=== PATIENT | female | born 1970 | race Caucasian/White ===

== ENCOUNTER 2019-01-06 10:32 | Observation (INO) ==
[2019-01-06] MEDS ORDERED: Metoclopramide 10 MG/2 ML VIAL IVP ONE (10:58)
[2019-01-06] MEDS ORDERED: 0.9 % Sodium Chloride 500 ML IVC STA (11:00)
[2019-01-06 11:48] LABS: Basophils % 0.2 %; Eosinophils # 0.2 K/mcL (0.0-0.6); Eosinophils % 1.6 %; Hematocrit 45.7 % (35.3-44.9); Hemoglobin 15.2 g/dL (11.5-15.4); Immature Granulocytes % 0.3 % (0-4); Lymphocytes # 3.6 K/mcL (0.6-4.6); Lymphocytes % 34.3 %; Mean Corpuscular HGB Conc 33.3 g/dL (31.6-35.5); Mean Corpuscular Hemoglobin 29.6 pg (28.0-33.3); Mean Corpuscular Volume 89.1 fL (83.0-100.0); Mean Platelet Volume 8.9 fL (9.4-12.4); Monocytes # 0.7 K/mcL (0.0-1.3); Monocytes % 6.3 %; Platelet Count 342 K/mcL (140-400); Red Blood Count 5.13 M/mcL (3.82-4.97); Red Cell Distribution Width 12.7 % (11.5-14.5); Segmented Neutrophils % 57.3 %
[2019-01-06 11:59] LABS: Prothrombin Time 10.9 Seconds (9.4-12.1)
[2019-01-06 12:02] LABS: Activated Partial Thrombo Time 32.7 Seconds (26.0-36.0)
[2019-01-06 12:03] LABS: BUN/Creatinine Ratio 11 (6-26); Blood Urea Nitrogen 8 mg/dL (6-20); Carbon Dioxide 24 mEq/L (23-29); Chloride 107 mEq/L (98-107); Glucose 91 mg/dL (70-105); Osmolality,Calculated 290 (280-300); Sodium 141 mEq/L (136-145); eGFR For Non-African Americans > 60 (> 60)
--- NOTE | 2019-01-06 12:12 | Emergency Department Note ---
Disposition Clinical Impression: TIA (transient ischemic attack), Blurred vision Disposition: Admitted As Inpatient Condition: Good Time of Disposition: 12:52 General Adult HPI - General Chief complaint: ED General Medical Stated complaint: "Wavy Vision" N/T Bilateral Finger Tips Time Seen by Provider: 01/06/19 10:38 Source: patient Limitations: no limitations Nursing Notes Reviewed: Yes Vital Signs Reviewed: Yes - History of Present Illness HPI Narrative: Patient is a 48-year-old female with a past medical history of hypertension and migraine disorder as well as anxiety presents to the emergency department for evaluation of blurred vision and numbness and tingling of the fingers and toes that started approximately 9:30 AM this morning. Patient states that she was leaning with her head down underdosing a prior first on when she opened her eyes she experienced blurred vision worse in the right but bilateral mostly in the periphery and then 20 minutes afterward she began having numbness with tingling in the bilateral hands and feet. This prompted her to come to the emergency department for evaluation. She states that this does not feel similar to migraines that she has had in the past and she originally did not have a headache however she was developing a LEW while I was talking to her she d escribed as a pressure-like 3/10 in the frontal region. No other focal neurological deficits. She does admit to multiple stressors in her life states that she is currently moving and that she also had a close family member/friend that and she became tearful discussing this with me. Pain Scale: 0 - Related Data Home Medications Medication Instructions Recorded Confirmed Albuterol Sulfate [Albuterol 2 puff IH Q4HR PRN 01/06/19 01/06/19 Inhaler] Topiramate [Topamax] 50 mg PO PRN PRN 01/06/19 01/06/19 Allergies Allergy/AdvReac Type Severity Reaction Status Date / Time meloxicam Allergy Swelling Verified 01/06/19 14:17 of Lip/Tongue/Throat All systems ED: reviewed and negative except as stated. Review of Systems: As Per HPI Constitutional: Denies: fever, chills Cardiovascular: Denies: chest pain, palpitations, dyspnea on exertion Respiratory: Denies: cough, dyspnea, wheezes Gastrointestinal: Denies: abdominal pain, vomiting Musculoskeletal: Denies: back pain, neck pain Neurological: Reports: headache, paresthesias. Denies: numbness, confusion, vertigo Psychiatric: Reports: anxiety Past Medical History - Past Medical History Attestation: Yes The following information was validated with the patient. Medical history: Reports: hypertension Psychiatric history: Reports: no psych history - Social History Smoking Status: Never smoker Smokeless Tobacco Status: No Alcohol use: Reports: none Drug use: Reports: none Physical Exam CONSTITUTIONAL: Well-appearing; well-nourished; A&O X 3, in no apparent distress HEAD: Normocephalic; atraumatic EYES: PERRL, no scleral icterus NOSE: The nose is normal in appearance without rhinorrhea NECK: No JVD or distended neck veins RESP: Normal chest excursion with respiration; breath sounds clear and equal bilaterally; no wheezes, rhonchi, or rales CARD: Regular rhythm, without murmurs, rub or gallop ABD: Non-distended; non-tender, soft, without rigidity, rebound or guarding,no pulsatile mass CHEST: No pain with palpation SKIN: Normal for age and race; warm and dry without diaphoresis ; no apparent lesions EXTREMITIES: Pulses are 2 plus and equal times 4 extremities, no peripheral edema or calf muscle pain NEUROLOGICAL: Patient is alert and oriented times three. Cranial nerves III- XII are intact. Sensory and motor functions are intact. Strength is 5/5 for flexion and extension in all 4 extremities. Patellar DTRS are equal and intact. Finger to nose testing is equal and normal bilaterally. - General Limitations: no limitations General appearance: alert, in no apparent distress Course Course Narrative: The patient was originally undergoing a workup for migraine as well as evaluation of basic labs including cardiac workup at the time my attending evaluating the patient at 1137 she was experiencing some difficulty with speech which the nurse notified us that this was a new thing that just occurred when she is trying to give her information to registration. Stroke alert was called at that time and the patient was taken immediately to CAT scan which CAT scan was negative. I evaluated the patient upon return from CAT scan she had a NIH stroke scale score of 0 at that time. She is seen by [facility] telemetry Dr. Sethi in which she did not her not a candidate for TPA at this time and recommended further evaluation for risk factors for TIA. I discussed this with the patient discussed plan to admit her to this hospital for further evaluation. Her symptoms since onset have been improving patient states that she no longer feels that she has problems with her speech and states that her blurred vision has been improving since she got here and only has some residual blurred vision at this time. I discussed the patient's case with the hospitalist on-call and a ccepted. Vital Signs Temperature 97.4 F L 01/06/19 10:34 Pulse Rate 72 01/06/19 10:34 Respiratory Rate 16 01/06/19 10:34 Blood Pressure 169/120 01/06/19 10:34 O2 Sat by Pulse Oximetry 99 01/06/19 10:34 Temperature 97.4 F L 01/06/19 10:34 Pulse Rate 76 01/06/19 12:00 Respiratory Rate 16 01/06/19 12:00 Blood Pressure 150/96 01/06/19 12:00 O2 Sat by Pulse Oximetry 96 01/06/19 12:00 Oxygen Delivery Oxygen Delivery Room Air Medical Decision Making - Medical Records Medical records reviewed: Yes I reviewed the patient's medical records. - Lab Data Lab results reviewed: Yes I reviewed the patient's lab results. Result diagrams: 01/06/19 11:34 01/06/19 11:34 Lab Results 01/06/19 01/06/19 01/06/19 Range/Units 11:34 11:34 11:34 WBC 10.4 (4.3-11.1) K/mcL RBC 5.13 H (3.82-4.97) M/mcL Hgb 15.2 (11.5-15.4) g/dL Hct 45.7 H (35.3-44.9) % MCV 89.1 (83.0-100.0) fL MCH 29.6 (28.0-33.3) pg MCHC 33.3 (31.6-35.5) g/dL RDW 12.7 (11.5-14.5) % Plt Count 342 (140-400) K/mcL MPV 8.9 L (9.4-12.4) fL Immature Gran % 0.3 (0-4) % Seg Neutrophils % 57.3 % Lymphocytes % 34.3 % Monocytes % 6.3 % Eosinophils % 1.6 % Basophils % 0.2 % Neutrophils # 6.0 (1.6-8.9) K/mcL Lymphocytes # 3.6 (0.6-4.6) K/mcL Monocytes # 0.7 (0.0-1.3) K/mcL Eosinophils # 0.2 (0.0-0.6) K/mcL Basophils # 0.0 (0.0-0.2) K/mcL PT (9.4-12.1) Seconds INR APTT (26.0-36.0) Seconds Sodium 141 (136-145) mEq/L Potassium 4.0 (3.5-5.1) mEq/L Chloride 107 (98-107) mEq/L Carbon Dioxide 24 (23-29) mEq/L BUN 8 (6-20) mg/dL Creatinine 0.74 (0.60-1.20) mg/dL Est GFR ( Amer) > 60 (> 60) Est GFR (Non-Af Amer) > 60 (> 60) BUN/Creatinine Ratio 11 (6-26) Glucose 91 (70-105) mg/dL Calculated Osmolality 290 (280-300) Calcium 9.0 (8.6-10.3) mg/dL Troponin I < 0.03 (< 0.04) ng/mL 01/06/19 Range/Units 11:40 WBC (4.3-11.1) K/mcL RBC (3.82-4.97) M/mcL Hgb (11.5-15.4) g/dL Hct (35.3-44.9) % MCV (83.0-100.0) fL MCH (28.0-33.3) pg MCHC (31.6-35.5) g/dL RDW (11.5-14.5) % Plt Count (140-400) K/mcL MPV (9.4-12.4) fL Immature Gran % (0-4) % Seg Neutrophils % % Lymphocytes % % Monocytes % % Eosinophils % % Basophils % % Neutrophils # (1.6-8.9) K/mcL Lymphocytes # (0.6-4.6) K/mcL Monocytes # (0.0-1.3) K/mcL Eosinophils # (0.0-0.6) K/mcL Basophils # (0.0-0.2) K/mcL PT 10.9 (9.4-12.1) Seconds INR 1.0 APTT 32.7 (26.0-36.0) Seconds Sodium (136-145) mEq/L Potassium (3.5-5.1) mEq/L Chloride (98-107) mEq/L Carbon Dioxide (23-29) mEq/L BUN (6-20) mg/dL Creatinine (0.60-1.20) mg/dL Est GFR ( Amer) (> 60) Est GFR (Non-Af Amer) (> 60) BUN/Creatinine Ratio (6-26) Glucose (70-105) mg/dL Calculated Osmolality (280-300) Calcium (8.6-10.3) mg/dL Troponin I (< 0.04) ng/mL - Radiology Data Radiology results reviewed: Yes I reviewed the patient's radiology results. Head CT 01/06/19 11:45 IMPRESSION: No acute intracranial abnormality. MRI with diffusion-weighted imaging is more sensitive for the evaluation of acute/hyperacute stroke. D/ / Baljeet Rogers MD / Baljeet Rogers MD Interpreting Provider: Baljeet Rogers MD - EKG Data EKG #1 EKG attestation: Yes I reviewed and interpreted this EKG. EKG results narrative: EKG done at 10:56 shows sinus rhythm at a rate of 60 bpm. Normal axis. Intervals within normal limits. No signs of ST elevation, ST depression or Q waves present. Attestation Statement - Attestation Attestation: I, Cj Ricks, examined this patient and my medical decision-making was reviewed with the [employer] [employer] [facility]/PA/Advanced Practice Nurse/Resident Physician. I agree with the documented findings, disposition and treatment plan as described except to the extent set forth below. 48-year-old female presents emergency Department with concerns of disturbed peripheral vision and tingling in the bilateral upper extremities. Patient states symptoms started acutely at 9:30. They had remained constant since that time. Her symptoms did not lateralize and a stroke alert was not initially called. While she is in the emergency department she started to develop difficulty with her speech describing a dysarthria. A stroke alert was called at this time, CT of the head did not show evidence of acute bleed. NIH was 1. Patient will be admitted to the hospitalist for further care and evaluation.
--- NOTE | 2019-01-06 13:36 | Internal Med History&Physical ---
<Fidel Raphael - Last Filed: 01/06/19 16:30> Date of Encounter: 01/06/19 Time of Encounter: 13:34 Internal Medicine - H&P: HPI Chief complaint: Blurry vision Admitted From: Emergency Dept Plans for Post Hospital Care: Home History of present illness: Ms. Cantu is a 48 year old female with a PMH of HTN, DDD, pineal cyst, and migraines controlled on Topamax who presented to the ED c/o "wavy vision" since 9:30 AM this morning while sitting in front of her computer at work. Patient also reported associated transient confusion, lip numbness, and headache in the ED which resolved after Reglan and Benadryl administration. She also reported bilateral hand numbness/tingling which has now resolved and a remote history of C3-4 spinal fusion. Family is at bedside. Past Med Surg Social Fam HX - Past Medical History Medical history: hypertension Psychiatric history: no psych history - Past Surgical History Additional surgical history: spinal surgery - Social History Smoking Status: Never smoker Smokeless Tobacco Status: No Alcohol use: none Drug use: none - Family History Father Living Status: Still Living (Healthy) Mother History Unknown: Yes Internal Medicine - H&P: Meds Albuterol Sulfate [Albuterol Inhaler] 2 puff IH Q4HR PRN 01/06/19 [History] Topiramate [Topamax] 50 mg PO PRN PRN 01/06/19 [History] Allergy/AdvReac Type Severity Reaction Status Date / Time meloxicam Allergy Swelling Verified 01/06/19 14:17 of Lip/Tongue/Throat All Systems PM: A 10-system review of systems was performed and is negative for pertinent findings except as documented above in the HPI. - Constitutional Constitutional: no anorexia, no chills, no fatigue, no fever(s), no weakness - EENT Eyes: blurry vision, change in vision, diplopia, no loss of vision, no seeing flashes, no spots in vision, no tunnel vision Nose, mouth and throat: no sinus pain, no sore throat - Cardiovascular Cardiovascular ROS IM: no chest pain, no edema, no palpitations - Respiratory Respiratory: no cough, no dyspnea - Gastrointestinal Gastrointestinal: no abdominal pain, no constipation, no diarrhea, no heartburn, no nausea, no vomiting - Genitourinary Genitourinary: no dysuria, no urinary frequency, no urinary urgency - Musculoskeletal Musculoskeletal ROS IM: back pain, neck pain, numbness, tingling - Integumentary Integumentary IM: no new lesions, no rash - Neurological Neurological ROS: confusion, headache(s), numbness, paresthesias, tingling, other visual disturbances, no abnormal gait, no abnormal speech, no burning sensations, no convulsions, no dizziness, no focal weakness, no frequent falls, no tremor(s), no weakness - Psychiatric Psychiatric: no anxiety, no depression - Endocrine Endocrine IM: no fatigue, no polydipsia, no polyphagia, no polyuria - Constitutional Vitals: Temp Pulse Resp BP Pulse Ox 97.4 F L 76 16 150/96 96 01/06/19 10:34 01/06/19 12:00 01/06/19 12:00 01/06/19 12:00 01/06/19 12:00 General appearance: Present: cooperative, A&O X 3, pleasant, no acute distress, obese, answers questions appropriately Exam: awake - Head Head exam: Present: atraumatic, normocephalic - Eye Eye exam: Present: EOMI, PERRL, conjuntiva pink, sclera anicteric Pupils: Present: PERRL - ENT ENT exam: Present: mucous membranes moist, normal oropharynx - Neck Neck exam general surgery: Present: normal inspection, supple, trachea midline. Absent: lymphadenopathy, nuchal rigidity - Respiratory Respiratory exam: Present: CTAB. Absent: accessory muscle use, rales, respirato ry distress, rhonchi, wheezes - Cardiovascular Cardiovascular exam: Present: RRR, +S1, +S2. Absent: diastolic murmur, gallop, rubs, systolic murmur - GI/Abdominal GI/Abdominal exam: Present: normal bowel sounds, soft, no peritoneal signs. Absent: distended, guarding, tenderness - Extremities Exam Extremities exam: Present: warm, radial pulses palpable and symmetrical. Absent: calf tenderness, cyanotic, pedal edema - Back Exam Back exam: Present: normal inspection. Absent: paraspinal tenderness, tenderness - Neurological Exam Neurological exam: Present: alert, CN II-XII intact, oriented X3, no focal deficits, strengths equal and symetr throughout. Absent: altered, motor sensory deficit, pronater drift, facial droop, speech deficit - Psychiatric Psychiatric exam: Present: normal affect, normal mood - Skin Skin exam: Present: dry, intact, normal color, warm Internal Med - H&P Results - Labs CBC & Chem 7: 01/06/19 11:34 01/06/19 11:34 Labs: Short CBC 01/06/19 Range/Units 11:34 WBC 10.4 (4.3-11.1) K/mcL Hgb 15.2 (11.5-15.4) g/dL Hct 45.7 H (35.3-44.9) % Plt Count 342 (140-400) K/mcL Neutrophils # 6.0 (1.6-8.9) K/mcL BMP 01/06/19 11:34 Sodium 141 Potassium 4.0 Chloride 107 Carbon Dioxide 24 BUN 8 Creatinine 0.74 Glucose 91 Calcium 9.0 Cardiac Enzymes 01/06/19 Range/Units 11:34 Troponin I < 0.03 (< 0.04) ng/mL - Pulse Oximetry Interpretation Digit-Finger O2 Sat by Pulse Oximetry: 97 (on ambient air) - EKG Data EKG shows normal: sinus rhythm (sinus rhythm at a rate of 60 bpm. Normal axis. Intervals within normal limits. No signs of ST elevation, ST depression or Q waves present) - Impressions ITS Impressions Head CT 01/06/19 11:45 IMPRESSION: No acute intracranial abnormality. MRI with diffusion-weighted imaging is more sensitive for the evaluation of acute/hyperacute stroke. D/ / Baljeet Rogers MD / Baljeet Rogers MD Interpreting Provider: Baljeet Rogers MD - Assessment and Plan (1) TIA (transient ischemic attack) Current Visit: Yes Status: Suspected Assessment and plan: 48-year-old female presents with transient blurry vision, confusion, roberto-oral and bilateral hand numbness/tingling, and headache. Symptoms resolved without any residual deficits. Differential includes TIA versus complex migraine versus hypertensive crisis. CT brain revealed no acute intracranial abnormality. MRI brain pending (Ativan x1 ordered pre-procedure secondary to history of severe anxiety with MRIs in the past) Echo pending Carotid Doppler pending Continue aspirin. Symptoms are completely resolved, no indication for PT/OT/ST elevation at this time. 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 Asymptomatic. Continue monitoring. (5) Obesity (BMI 30-39.9) Current Visit: Yes Status: Chronic Assessment and plan: Lifestyle modification. (6) DVT prophylaxis Current Visit: Yes Status: Acute Assessment and plan: Heparin SubQ TID (7) Hypertensive emergency Current Visit: Yes Status: Resolved Assessment and plan: Patient presented with blood pressure 160/120 --> 196/105 and acute altered mental status/ transient neuro deficits. Blood pressure now within normal range Continue hydralazine prn - Time Spent With Patient Total time spent is greater than 50% in coordination of care (as documented) at patient's floor/unit and/or counseling patient: <Bobby Mar - Last Filed: 01/06/19 19:00> Date of Encounter: 01/06/19 Internal Medicine - H&P: HPI History of present illness: Ms. Cantu is a 48 year old female All Systems PM: A 10-system review of systems was performed and is negative for pertinent findings except as documented above in the HPI. - Constitutional Vitals: Temp Pulse Resp BP Pulse Ox 97.8 F 70 17 150/95 97 01/06/19 16:57 01/06/19 16:57 01/06/19 16:57 01/06/19 16:57 01/06/19 16:57 Internal Med - H&P Results - Labs CBC & Chem 7: 01/06/19 11:34 01/06/19 11:34 Labs: Short CBC 01/06/19 Range/Units 11:34 WBC 10.4 (4.3-11.1) K/mcL Hgb 15.2 (11.5-15.4) g/dL Hct 45.7 H (35.3-44.9) % Plt Count 342 (140-400) K/mcL Neutrophils # 6.0 (1.6-8.9) K/mcL BMP 01/06/19 11:34 Sodium 141 Potassium 4.0 Chloride 107 Carbon Dioxide 24 BUN 8 Creatinine 0.74 Glucose 91 Calcium 9.0 Cardiac Enzymes 01/06/19 Range/Units 11:34 Troponin I < 0.03 (< 0.04) ng/mL - Impressions ITS Impressions Head CT 01/06/19 11:45 IMPRESSION: No acute intracranial abnormality. MRI with diffusion-weighted imaging is more sensitive for the evaluation of acute/hyperacute stroke. D/ / Baljeet Rogers MD / Baljeet Rogers MD Interpreting Provider: Baljeet Rogers MD - Assessment and Plan (1) TIA (transient ischemic attack) Current Visit: Yes Status: Suspected (2) Migraine without aura and without status migrainosus, not intractable Current Visit: Yes Status: Chronic (3) DDD (degenerative disc disease) Current Visit: Yes Status: Chronic Qualifiers: Spinal region: mid-cervical Mid-cervical spinal level: unspecified Qualified Code(s): M50.320 - Other cervical disc degeneration, mid-cervical region, unspecified level (4) Obesity (BMI 30-39.9) Current Visit: Yes Status: Chronic (5) Pineal gland cyst Current Visit: Yes Status: Chronic (6) DVT prophylaxis Current Visit: Yes Status: Acute (7) Hypertensive emergency Current Visit: Yes Status: Resolved - Time Spent With Patient Total time spent is greater than 50% in coordination of care (as documented) at patient's floor/unit and/or counseling patient: - Attending Attestation I have seen and independently assessed this patient and I agree with plan as documented
[2019-01-06] MEDS ORDERED: Ketorolac 15 MG/ML VIAL IVP PRN (14:25)
[2019-01-06] MEDS ORDERED: *HR* LORazepam 2 MG/ML VIAL IVP ONE (14:25)
[2019-01-06] MEDS ORDERED: Naloxone 0.4 MG/ML INJ IVP PRN (14:25)
[2019-01-06] MEDS ORDERED: Ondansetron 4 MG/2 ML VIAL IVP PRN (14:25)
[2019-01-06] MEDS ORDERED: Aspirin Enteric Coated 325 MG Tablet PO ONE (14:25)
[2019-01-06] MEDS ORDERED: Topiramate 25 MG TABLET PO PRN (14:44)
[2019-01-06 15:20] LABS: Chol/HDL Ratio 4.1 (0-4.9); Cholesterol 160 mg/dL (< 200); HDL Cholesterol 39 mg/dL (40-59); LDL Cholesterol,Calculated 90 mg/dL (0-99); Magnesium 1.9 mg/dL (1.6-2.6); Triglycerides 155 mg/dL (< 150)
[2019-01-06 15:47] LABS: Estimated Average Glucose 105 mg/dl; Hemoglobin A1C 5.3 %
[2019-01-06] MEDS: *HR* Heparin 5,000 UNIT/ML VIAL SQ SCH (23:16)
[2019-01-07 03:18] LABS: Hematocrit 40.8 % (35.3-44.9); Hemoglobin 13.7 g/dL (11.5-15.4); Mean Corpuscular HGB Conc 33.6 g/dL (31.6-35.5); Mean Corpuscular Hemoglobin 29.8 pg (28.0-33.3); Mean Corpuscular Volume 88.9 fL (83.0-100.0); Mean Platelet Volume 9.1 fL (9.4-12.4); Platelet Count 291 K/mcL (140-400); Red Blood Count 4.59 M/mcL (3.82-4.97); Red Cell Distribution Width 12.7 % (11.5-14.5)
[2019-01-07 03:37] LABS: BUN/Creatinine Ratio 12 (6-26); Blood Urea Nitrogen 8 mg/dL (6-20); Calcium 8.2 mg/dL (8.6-10.3); Carbon Dioxide 23 mEq/L (23-29); Chloride 107 mEq/L (98-107); Glucose 94 mg/dL (70-105); Osmolality,Calculated 286 (280-300); Potassium 3.8 mEq/L (3.5-5.1); Sodium 139 mEq/L (136-145); eGFR For Non-African Americans > 60 (> 60)
--- NOTE | 2019-01-07 04:01 | Electrocardiograph Report ---
[facility] [employer] [facility] Test Date: 2019-01-06 Pat Name: Brittany Cantu Department: [id number] Room: 3B22 Gender: F Compliance Advisor: : 1970 Requested By: Oscar De Los Santos Order Number: [id number] Reading MD: Saad Singleton Measurements Intervals [place] Rate: 60 P: 40 UT: 173 QRS: 21 QRSD: 83 T: 62 QT: 435 QTc: 435 Interpretive Statements Sinus rhythm Electronically Signed On 01-07-2019 3:59:18 EDT by Saad Singleton
[2019-01-07] MEDS: *HR* Heparin 5,000 UNIT/ML VIAL SQ SCH ×3 (06:04→21:27)
[2019-01-07] MEDS: Aspirin Enteric Coated 81 MG Tablet PO SCH (07:55)
[2019-01-07] MEDS ORDERED: DiphenhydraMINE CREAM 28.4 GM TUBE TP PRN (12:40)
--- NOTE | 2019-01-07 14:45 | Internal Med Progress Note ---
Hospitalist Progress Note - Encounter Date of Encounter: 01/07/19 Time of Encounter: 14:32 - Subjective Interval History: Patient was seen and evaluated at bedside currently denies any headaches blurred visions, nausea she is neurologically intact. Discussed MRI CT and echo results with the patient discuss treatment plan which includes adding antihypertensive closely monitoring blood pressure. Patient verbalizes understanding - Exam Vitals: Temp Pulse Resp BP Pulse Ox 97.5 F L 85 16 141/94 96 01/07/19 12:17 01/07/19 12:17 01/07/19 12:17 01/07/19 12:17 01/07/19 12:17 Exam: Skin: Free of rash and discoloration. Eyes: Sclera is white. There is no discharge from eyes. ENMT: Oral/pharyngeal mucosa is normal in appearance. There is no discharge from nose or ears. Respiratory: Normal breath sounds with no crackles and wheezes bilaterally. CV: Heart is regular with no gallop or murmur. GI: Abdomen is flat and soft with no palpable mass or visceromegaly. : There is no tenderness in patient's flanks bilaterally. Neuro exam: He has good strength in upper and lower extremities. He has normal eye movements. Psychiatric: He has normal affect. His thought process is appropriate to the situation. - Assessment and Plan (1) Hypertensive emergency Current Visit: Yes Status: Resolved Assessment and Plan: Patient presented with blood pressure 160/120 --> 196/105 and acute altered mental status/ transient neuro deficits. Blood pressure now higher end normal range- Continue hydralazine prn We will add lisinopril and continue to monitor (2) TIA (transient ischemic attack) Current Visit: Yes Status: Suspected Assessment and Plan: 48-year-old female presents with transient blurry vision, confusion, roberto-oral and bilateral hand numbness/tingling, and headache. Symptoms resolved without any residual deficits. Differential includes TIA versus complex migraine versus hypertensive crisis.- Suspect this is more hypertensive emergency- CT brain revealed no acute intracranial abnormality. MRI brain IMPRESSION: No evidence of acute ischemia Benign 9 mm pineal cyst Echo Impressions: LVEF 65%. Mild left ventricular diastolic dysfunction. Right ventricular size is not well visualized. Systolic function grossly normal. Mild tricuspid regurgitation. No pulmonary hypertension based on TR signal obtained. Suboptimal imaging to detect PFO with saline contrast injection. Carotid Doppler Bilateral carotid duplex appears to be within normal limits. Continue aspirin. Symptoms are completely resolved, no indication for PT/OT/ST elevation at this time. (3) Migraine without aura and without status migrainosus, not intractable Current Visit: Yes Status: Chronic Assessment and Plan: Continue Topamax prn (4) DDD (degenerative disc disease) Current Visit: Yes Status: Chronic Assessment and Plan: Patient with history of C3-4 spinal fusion Continue monitoring (5) Obesity (BMI 30-39.9) Current Visit: Yes Status: Chronic Assessment and Plan: Lifestyle modification. 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 Asymptomatic. Continue monitoring. (7) DVT prophylaxis Current Visit: Yes Status: Acute Assessment and Plan: Heparin SubQ TID - Time Spent with Patient Total time spent is greater than 50% in coordination of care (as documented) at patient's floor/unit and/or counseling patient: Internal Medicine: Result - Labs CBC & Chem 7: 01/07/19 02:56 01/07/19 02:56 Labs: Short CBC 01/07/19 Range/Units 02:56 WBC 9.9 (4.3-11.1) K/mcL Hgb 13.7 D (11.5-15.4) g/dL Hct 40.8 (35.3-44.9) % Plt Count 291 (140-400) K/mcL BMP 01/06/19 01/07/19 11:34 02:56 Sodium 141 139 Potassium 4.0 3.8 Chloride 107 107 Carbon Dioxide 24 23 BUN 8 8 Creatinine 0.74 0.66 Glucose 91 94 Calcium 9.0 8.2 L - ABG Interpretation ABG results: PT/INR, D-dimer PT 10.9 Seconds (9.4-12.1) 01/06/19 11:40 - Impressions Impressions Brain MRI 01/06/19 14:25 IMPRESSION: No evidence of acute ischemia Benign 9 mm pineal cyst D/ / Andrew Mariano MD / Andrew Mariano MD Interpreting Provider: Andrew Mariano MD Echocardiogram 01/06/19 14:32 Impressions: LVEF 65%. Mild left ventricular diastolic dysfunction. Right ventricular size is not well visualized. Systolic function grossly normal. Mild tricuspid regurgitation. No pulmonary hypertension based on TR signal obtained. Suboptimal imaging to detect PFO with saline contrast injection. Left Ventricular Wall Motion: Rest Echo Findings All wall segments showed normal motion. Findings: Study Quality * Technically adequate exam. ECG Findings * Normal sinus rhythm. Left Ventricle * LVEF 65%. * Mild left ventricular diastolic dysfunction. * Probably basal septal hypertrophy. LV wall measurements not optimally obtained. Right Ventricle * Right ventricular size is not well visualized. Systolic function grossly normal. Left Atrium * Normal left atrial size. Right Atrium * Normal right atrial size. Aortic Valve * No aortic regurgitation. * Trileaflet aortic valve. * No aortic stenosis. Mitral Valve * No mitral regurgitation. * Normal mitral valve structure. * No mitral stenosis. Tricuspid Valve * Tricuspid valve not well visualized. * Mild tricuspid regurgitation. * No tricuspid regurgitation. Pulmonic Valve * Pulmonic valve is not well visualized. * No pulmonic stenosis. * No pulmonic regurgitation. Pulmonary Artery * Pulmonary artery not well visualized. Aorta * Normally sized aortic root. Pericardium * There is no pericardial effusion present. Interatrial Septum * Interatrial septum not well evaluated. IVC * The IVC is not well evaluated. Consult Discharge Plan - Plan Referrals: NONE,PCP [Primary Care Provider] - (4) DDD (degenerative disc disease) Qualifiers: Spinal region: mid-cervical Mid-cervical spinal level: unspecified Qualified Code(s): M50.320 - Other cervical disc degeneration, mid-cervical region, unspecified level
[2019-01-07] MEDS: Acetaminophen 325 MG TABLET PO PRN (21:34)
[2019-01-08] MEDS: *HR* Heparin 5,000 UNIT/ML VIAL SQ SCH (06:49)
[2019-01-08] MEDS: Acetaminophen 325 MG TABLET PO PRN (06:56)
[2019-01-08 07:23] VITALS: BP 128/85
[2019-01-08] MEDS: Aspirin Enteric Coated 81 MG Tablet PO SCH (08:58)
--- NOTE | 2019-01-08 11:04 | Discharge Summary ---
- NOTES TO OUTPATIENT PROVIDER Notes to Outpatient Provider: f/u with PCP within 2 weeks. Date of Encounter: 01/08/19 Time of Encounter: 11:01 - Discharge Diagnosis (1) TIA (transient ischemic attack) Priority: Primary Status: Suspected (2) Migraine without aura and without status migrainosus, not intractable Priority: Primary Status: Acute (3) DDD (degenerative disc disease) Priority: Secondary Status: Chronic Qualifiers: Spinal region: mid-cervical Mid-cervical spinal level: unspecified Qualified Code(s): M50.320 - Other cervical disc degeneration, mid-cervical region, unspecified level (4) Obesity (BMI 30-39.9) Priority: Secondary Status: Chronic (5) Pineal gland cyst Priority: Secondary Status: Chronic (6) DVT prophylaxis Priority: Primary Status: Acute (7) Hypertensive emergency Priority: Primary Status: Resolved Hospital course: Ms. Cantu is a 48 year old female with a PMH of HTN, DDD, pineal cyst, and migraines controlled on Topamax who presented to the ED c/o "wavy vision" since 9:30 AM this morning while sitting in front of her computer at work. Patient also reported associated transient confusion, lip numbness, and headache in the ED which resolved after Reglan and Benadryl administration. She also reported bilateral hand numbness/tingling which has now resolved and a remote history of C3-4 spinal fusion. MRI of brain was negative for CVA. TIA was suspected, an echocardiogram and the carotid Doppler both were unremarkable. Patient's symptoms has resolved. Patient is discharged home today, she was instructed to continue taking medication for migraine, follow-up with PCP within 2 weeks. Discharge discussed with: patient Time spent discussing smoking cessation with patient: more than 10 minutes - Time Spent with Patient Total time spent providing and/or coordinating discharge services: Time spent: Greater than 30 minutes - Discharge Medications Prescriptions: Continued Topiramate [Topamax] 50 mg PO PRN PRN PRN Reason: migraines Albuterol Sulfate [Albuterol Inhaler] 2 puff IH Q4HR PRN PRN Reason: Shortness Of Breath Home Medications: Albuterol Sulfate [Albuterol Inhaler] 2 puff IH Q4HR PRN 01/06/19 [History] Topiramate [Topamax] 50 mg PO PRN PRN 01/06/19 [History] Allergies/Adverse Reactions: Allergy/AdvReac Type Severity Reaction Status Date / Time meloxicam Allergy Swelling Verified 01/06/19 14:17 of Lip/Tongue/Throat Date of admission: 01/06/19 14:12 Primary care physician: PCP NONE Anticipated date of discharge: 01/08/19 - Constitutional Vitals: Temp Pulse Resp BP Pulse Ox 97.9 F 64 15 128/85 97 01/08/19 07:22 01/08/19 07:22 01/08/19 07:22 01/08/19 07:22 01/08/19 07:22 General appearance: Present: cooperative, A&O X 3, pleasant, no acute distress, obese, answers questions appropriately Exam: Skin: Free of rash and discoloration. Eyes: Sclera is white. There is no discharge from eyes. ENMT: Oral/pharyngeal mucosa is normal in appearance. There is no discharge from nose or ears. Respiratory: Normal breath sounds with no crackles and wheezes bilaterally. CV: Heart is regular with no gallop or murmur. GI: Abdomen is flat and soft with no palpable mass or visceromegaly. : There is no tenderness in patient's flanks bilaterally. Neuro exam: He has good strength in upper and lower extremities. He has normal eye movements. Psychiatric: He has normal affect. His thought process is appropriate to the situation. - Patient Status Disposition: Home, Self-Care Condition: Good Functional capacity at discharge: independent ambulation Overall status at discharge: patient is progressing back to baseline - Discharge Instructions Follow Up With: NONE,PCP [Primary Care Provider] - - Diet and Activity Activity: increase activity as tolerated Diet: advance to your usual diet
== END 2019-01-08 12:09 | disposition home or self-care (01) ==
LOC: EMEROOARM 10:32 → 3BNU 10:32
PROVIDERS: ADMIT Student in an Organized Health Care Education/Training Program; ATTEND Student in an Organized Health Care Education/Training Program